=== PATIENT | female | born 1985 | race Caucasian/White ===

== ENCOUNTER 2020-09-30 13:28 | Emergency (ER) | payer SELFPAY ==
[~2020-09-30] VITALS: Ht 172.7 cm; Wt 80.0 kg
[2020-09-30] MEDS ORDERED: ACETAMINOPHEN 325MG TABLET PO ONE (15:30)
[2020-09-30 16:21] VITALS: BP 134/82
== END 2020-09-30 16:23 | disposition home or self-care (01) ==
LOC: ER 13:44
DX: S39.91XA Unspecified injury of abdomen, initial encounter (principal); V09.9XXA Pedestrian injured in unspecified transport accident, initial encounter; Y93.89 Activity, other specified; Y92.89 Other specified places as the place of occurrence of the external cause; Y99.8 Other external cause status
CPT/HCPCS: 71045; 99283; Z7610